=== PATIENT | female | born 1980 | race Caucasian/White ===

== ENCOUNTER → 2018-06-04 16:20 | Outpatient (CLI) | payer OTHER, SELFPAY ==
[2018-06-09 15:26] LABS: HPV HC, High Risk Negative (Negative)
--- OUTSIDE RECORDS SUMMARY | 2018-07-22 00:59 | XMS RPT_ITS ---
:1980 Author Organization OHIP Support Name Relationship Address Phone MIRTHA HYATT Unavailable [address] + [place] [address] [facility] Unavailable [address] + [place] [address] China Hyattian Unavailable Unavailable + VERNON, ROLAND Unavailable [address] + [place] [address] PROUDFOOT, MIRTHA Unavailable [address] + [place] [address] PROUDFOOT, MIRTHA Unavailable [address] + [place] [address] PROUDFOOT, MIRTHA Unavailable [address] + [place] [address] Proudfoot, Mirtha Unavailable Unavailable + Proudfoot, Mirtha Unavailable Unavailable + VERNON, ROLAND Unavailable [address] + [place] [address] PROUDFOOT, MIRTHA Unavailable [address] + [place] [address] PROUDFOOT, MIRTHA Unavailable [address] + [place] [address] VERNON, ROLAND Unavailable [address] + [place] [address] PROUDFOOT, MIRTHA Unavailable [address] + [place] [address] PROUDFOOT, MIRTHA Unavailable [address] + [place] [address] Proudfoot, Mirtha Unavailable Unavailable + Care Team Providers Name Role Phone DR. TAYLOR CASON DO Attending Unavailable WILLEM SAUCEDO, RICHARD Salcido JR. Primary Care Unavailable DR. TAYLOR CASON DO Attending Unavailable WILLEM SAUCEDO, RICHARD Salcido JR. Primary Care Unavailable FRANK. Castillo MACK MD II Attending Unavailable WILLEM SAUCEDO, RICHARD Salcido JR. Primary Care Unavailable JORGE MACK Attending Unavailable TAYLOR CASON Referring Unavailable TAYLOR CASON Primary Care Unavailable PROVIDER, UNKNOWN Attending Unavailable PROVIDER, UNKNOWN Referring Unavailable PROVIDER, UNKNOWN Primary Care Unavailable PROVIDER, UNKNOWN Attending Unavailable PROVIDER, UNKNOWN Referring Unavailable PROVIDER, UNKNOWN Primary Care Unavailable Ellen Esparza Attending Unavailable PROVIDER, UNKNOWN Referring Unavailable TAYLOR CASON Primary Care Unavailable PROVIDER, UNKNOWN Attending Unavailable PROVIDER, UNKNOWN Referring Unavailable PROVIDER, UNKNOWN Primary Care Unavailable Alexandre Schultz Attending Unavailable Marion, Alexandre Referring Unavailable Taylor Cason Primary Care Unavailable PROBLEMS PROBLEMS DATE TYPE CONDITION / CODE ATTENDING STATUS SOURCE 06/05/2018 Unknown Z12.4 - Encounter Alexandre Schultz Active [place] for screening for Community malignant neoplasm [facility] / Repository Z12.4(ICD-10) 04/18/2018 Admitting Primary Unknown Active [facility] Diagnosis osteoarthritis, System left ankle and Repository foot / M19.072(ICD-10) 04/18/2018 Admitting Calcaneal spur, Unknown Active [facility] Diagnosis left foot / System M77.32(ICD-10) Repository 04/18/2018 Admitting Arthrodesis status Unknown Active [facility] Diagnosis / Z98.1(ICD-10) System Repository 02/03/2018 Admitting Pain in left foot Ellen Esparza Active [facility] Diagnosis / M79.672(ICD-10) System Repository 09/19/2017 Admitting Lesion of plantar Unknown Active [facility] Diagnosis nerve, right lower System limb / Repository G57.61(ICD-10) 09/19/2017 Admitting Essential Unknown Active [facility] Diagnosis (primary) System hypertension / Repository I10(ICD-10) 09/19/2017 Admitting Other disorders of Unknown Active [facility] Diagnosis phosphorus System metabolism / Repository E83.39(ICD-10) 09/19/2017 Admitting Other gastritis Unknown Active [facility] Diagnosis without bleeding / System K29.60(ICD-10) Repository 08/02/2017 Admitting Pain in right foot Unknown Active [facility] Diagnosis / M79.671(ICD-10) System Repository PROCEDURES PROCEDURES No Procedure Records FoundRESULTS RESULTS PAP I-G HPV HI Collected: 06/04/2018 Status: F Source: [place] [facility] 4:20 PM [facility] [place] Order Comment: CYTOLOGY INFORMATION: - CLINICAL INFORMATION: - DATE LMP/MENOPAUSE: 05/24/18 LMP - COLLECTION VIAL: Thin Prep Vial - NAILING MACHINE OPERATOR SOURCE: CERVICAL/ENDOCERVICAL - COLLECTION TECHNIQUE: BRUSH/SPATULA Specimen Comment: [id number] Specimen Comment: Source.............Cervix;Endocervix Specimen Comment: LMP / Prev Treat...HFV=[id number] Specimen Comment: No. of containers..01 ThinPrep Vial TYPE CODE TESTS RESULT OUT OF RANGE REFERENCE UNITS LAB L7400.0800 . Normal DIAGN Comment Result Comment: NEGATIVE FOR INTRAEPITHELIAL LESION AND MALIGNANCY. LAB L7400.0900 . Normal ADEQ Comment Result Comment: Satisfactory for evaluation. Endocervical and/or squamous metaplastic cells (endocervical component) are present. LAB L7400.1400 . Normal PERFORM Comment Result Comment: Shyanne Tyler, Pre Press Proofer (ASCP) LAB L7400.2575 . Normal TEST METHOD Comment Result Comment: This liquid based ThinPrep(R) pap test was screened with the use of an image guided system. LAB L7400.2600 . Normal . COMM LAB L7400.2700 . Normal PAPSMR Comment Result Comment: The Pap smear is a screening test designed to aid in the detection of premalignant and malignant conditions of the uterine cervix. It is not a diagnostic procedure and should not be used as the sole means of detecting cervical cancer. Both false-positive and false-negative reports do occur. LAB L7400.2950 Negative Normal HPV Negative HC,HGH RISK Result Comment: This high-risk HPV test detects thirteen high-risk types (16/18/31/33/35/39/45/51/52/56/58/59/68) without differentiation. Performed at: [address] [id number] Casting Machine Operator Automatic: Jenny Arnold MD, Phone: [phone] Performed at: =[address] [id number] Casting Machine Operator Automatic: Jenny Arnold MD, Phone: [phone] Performed By: #### L7400.0375 #### [facility] (refer to report for specific site) refer to report for address and phone number CR FOOT COMPLETE 3+ Observed: 04/20/2018 Status: F Source: [facility] VIEWS LEFT 2:35 PM SYSTEM REPOSITORY Patient Name: ROMAN HYATT Diagnostic Radiology Exam Date/Time 04/18/2018 16:06:09 EDT Exam CR Foot Complete 3+ Views Left Ordering Physician ELLEN ESPARZA Accession Number [id number] CPT4 Codes 29263 () Reason For Exam Lt foot pain Report LEFT FOOT: CLINICAL INDICATION: Left foot pain. Prior left foot surgery. TECHNIQUE: AP, Lat and Oblique COMPARISON: 02/03/2018. FINDINGS: Prior talonavicular bony fusion by two cortical screws is unchanged. No hardware loosening. There is no evidence for fracture or dislocation. Mild degenerative changes of the first MTP joint are noted. Plantar calcaneal enthesophytes. No bone lesion or soft tissue abnormality is identified. IMPRESSION: 1. Mild first MTP osteoarthritis. 2. Talonavicular fusion by cortical screws. No loosening. 3. Cocaine enthesophytes. Report Dictated on Workstation: [id number] Final Dictating Physician: ALEXANDRE RAYMUNDO DO, I Signed Date and Time: 04/20/2018 2:37 pm Signed by: ALEXANDRE RAYMUNDO DO, I Transcribed Date and Time: 04/20/2018 2:38 CMP Collected: 02/28/2018 Status: F Source: [facility] 3:51 PM [facility] REPOSITORY TYPE CODE TESTS RESULT OUT OF REFERENCE UNITS RANGE LAB GLU(LOINC) 70-105 mg/dL Glucose Level 87 LAB NA(LOINC) 136-145 mmol/L Sodium Level 139 LAB K(LOINC) 3.5-5.1 mmol/L Potassium Level 4.0 LAB CL(LOINC) 98-107 mmol/L Chloride 100 LAB CO2(LOINC) 22-29 mmol/L CO2 26 LAB EBAL(LOINC mEq/L ) Electrolyte Balance 13.0 LAB BUN(LOINC) 7-18 mg/dL BUN High 26 LAB CRE(LOINC) 0.55-1.02 mg/dL Creatinine Lvl (s) 0.93 LAB BC(LOINC) 7-27 ratio High BUN/Creatinine 28 Ratio LAB CA(LOINC) 8.4-10.2 mg/dL Calcium Lvl 9.8 LAB PROT(LOINC 6.4-8.2 G/dL ) Total Protein 7.8 LAB ALB(LOINC) 3.5-5.0 G/dL Albumin Level 3.8 LAB GLB(LOINC) G/dL Globulin 4.0 LAB AG(LOINC) 1.1-2.5 ratio Low A/G Ratio 1.0 LAB BILT(LOINC 0.2-1.0 mg/dL ) Bili Total 0.2 LAB AP(LOINC) 40-135 U/L Alk Phos High >2300 LAB AST(LOINC) 10-40 U/L AST/SGOT 16 LAB ALT(LOINC) 10-35 U/L ALT/SGPT 22 Performed By: #### CMP, GFR, TSH, FT4, VIDH, PTH #### [place] [address] .GFR Collected: 02/28/2018 Status: F Source: [facility] 3:51 PM [facility]OUNDATION REPOSITORY TYPE CODE TESTS RESULT OUT OF REFERENCE UNITS RANGE LAB GFRAA(LOINC ml/min/1.73 ) sqm GFR 81 Norwegian Result Comment: GFR Population mean for , Non- Americans Ages 20-29 = 116 mL/min/1.73 sq.m. Ages 30-39 = 107 mL/min/1.73 sq.m. Ages 40-49 = 99 mL/min/1.73 sq.m. Ages 50-59 = 93 mL/min/1.73 sq.m. Ages 60-69 = 85 mL/min/1.73 sq.m. Ages 70+ = 75 mL/min/1.73 sq.m. Chronic Kidney Disease: Less than 60 mL/min/1.73 square meters End Stage Renal Disease: Less than 15 mL/min/1.73 square meters LAB GFRNO(LOINC) ml/min/1.73sqm GFR Non- 67 Result Comment: GFR Population mean for , Non- Americans Ages 20-29 = 116 mL/min/1.73 sq.m. Ages 30-39 = 107 mL/min/1.73 sq.m. Ages 40-49 = 99 mL/min/1.73 sq.m. Ages 50-59 = 93 mL/min/1.73 sq.m. Ages 60-69 = 85 mL/min/1.73 sq.m. Ages 70+ = 75 mL/min/1.73 sq.m. Chronic Kidney Disease: Less than 60 mL/min/1.73 square meters End Stage Renal Disease: Less than 15 mL/min/1.73 square meters Performed By: #### CMP, GFR, TSH, FT4, VIDH, PTH #### [place] [address] TSH Collected: 02/28/2018 Status: F Source: [facility] 3:51 [facility] [place] REPOSITORY TYPE CODE TESTS RESULT OUT OF RANGE REFERENCE UNITS LAB TSH(LOINC) 0.36-3.74 mcIU/mL TSH 1.73 Performed By: #### CMP, GFR, TSH, FT4, VIDH, PTH #### [place] [address] FT4 Collected: 02/28/2018 Status: F Source: [facility] 3:51 [facility] [place] REPOSITORY TYPE CODE TESTS RESULT OUT OF RANGE REFERENCE UNITS LAB FT4(LOINC) 0.76-1.46 ng/dL Free T4 1.26 Performed By: #### CMP, GFR, TSH, FT4, VIDH, PTH #### [place] [address] VIDH Collected: 02/28/2018 Status: F Source: [facility] 3:51 [facility] [place] REPOSITORY TYPE CODE TESTS RESULT OUT OF RANGE REFERENCE UNITS LAB VIDH(LOINC) ng/mL Vit. D 29 25-Hydroxy Result Comment: Interpretive Values Based on Total 25(OH)D: Severe Deficiency <20 ng/mL Mild to Moderate Deficiency 20-30 ng/mL Optimum Levels 30-100 ng/mL Toxicity Possible >100 ng/mL Performed By: #### CMP, GFR, TSH, FT4, VIDH, PTH #### [place] [address] PTH Collected: 02/28/2018 Status: F Source: [facility] 3:51 PM FOUNDATION REPOSITORY TYPE CODE TESTS RESULT OUT OF REFERENCE UNITS RANGE LAB PTH(LOINC) 18.5-88.0 pg/mL PTH, Intact 39.4 Performed By: #### CMP, GFR, TSH, FT4, VIDH, PTH #### [facility] [address] [place] [id number] PROGRESS NOTE Observed: 02/21/2018 Status: COMPLETED Source: [place] 3:30 PM [facility] REPOSITORY Skeletal Dysplasia Clinic Note Date: 02/21/18 Reason for Visit: Roman Hyatt 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 They She presents today with her daughter. I last saw her in clinic on May 24, 2017. At that time she was being seen for recheck was found to have profound hypertension and was sent to the emergency department. Was reported that she was placed on medication with improvement of her hypertension been occurring. 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 Additionally, she has a surgical history significant for femur osteotomy and fixation in 1997 and 1998, foot surgery in 2009 2010, C-sections in 2000 in 2007, fallopian tube ligation in July 2007. She has been on Strensiq for the past 2 years and has done rather well. When her dose was lowered based on weight loss, she did notice breakthrough pain and achiness. This resolved when the dose was increased to that which was based on a prior weight. She does follow with ophthalmology (Dr. Henry) and no calcifications were noted on January 07, 2017. She s been asked to follow at least yearly there, preferably Q6 months. She also follows with dentistry, teeth have been stable with a permanent border wire in place. She undergoes lab evaluation every 6 months (CMP, PTH, phosphorus). Roman has trouble with headaches, these are thought to be migraine in nature. However, it is not clear to what degree her hypertension was causing these. Per report, her hypertension is now being successfully managed medically. A cyst was found on renal CT per report, and I asked a she consult with nephrology which occurred in July 2017, Dr. Chavez. At that point in time amlodipine 5 mg nightly was added and was documented that review of the renal scans would occur. At her last visit, I also ordered a sleep study which was to occur at an [facility] facility due to Roman s age. Family, she has a history of gastritis treated with Protonix. She had a DEXA scan done in summer which was essentially within normal limits showing the lumbar spine at 1.4 distal radius of -1.5. Due to cost savings, Roman has opted to use the less concentrated form of Streniq and so is now administering 2 injections per day, six days per week. Significant Ongoing Issues: 1. Left foot pain. Following with adult orthopedist. Bone spurs with suspicion of osteoarthritis, having been diagnosed via x-rays, no fracture noted. Treatment plan includes cortisone injection, pending. SD ROS: Vision: No issues or concerns. Follow-up with seamer operator (Dr. Henry). Follow-up in 2018, no issues or problems, no calcifications per report. Ears: No issues Dental: Stable dentition with permanent border wire in place. Reports some looseness of front teeth. Following with serial x-rays with dentist. Reports no visible increase in bone mass over the past year while in Strensiq. Resp: No significant snoring, apnea, cough, distress. Cardiovascular: History of hypertension, at last visit in May 2017. Blood pressure around 205/93. She was sent to the emergency department at that time that she was having significant headaches accompanied with elevated blood pressure. She was treated with medication in the ER and sent home. Since that time. Follow with cardiology/nephrology currently continued on Norvasc as well as Toprol XR, blood pressure is not running 120s over 80s to 90s. Headache is greatly improved. No ongoing concerns about cardiovascular disease per report. SENIOR OFFICE SUPPORT ASSISTANT SOSA: Headaches are greatly improved since control the hypertension. No LOC, seizure activitiy Sleep: Sleeping well Growth: Express some concern about weight gain. Void/Stool: Renal cyst per past CT. Evaluated by nephrology Dr. Chavez in July 2017. Medication for hypertension prescribed. History of constipation, persistent Skin: No rash or bruising Dry skin Hormone: Roman voices concerns about possible thyroid issues Menarche/LMP: On OCP Past Medical History: Previously documented in medical record. Hypophosphatasia, hypertension, renal cysts, GERD Past Surgical History: Previously documented in medical record. - Resection of neuroma, right foot August 2017 - Femoral osteotomy with fixation 1990 8/19/99 - Foot surgery 04/2010, on 04/2011 - C-sections 2001 in 2007 Medications: Strensiq 0.67mL daily, six days per week Grossly. Norvasc Toprol XL Allergies: Morphine eyes Codeine nausea and vomiting Immunizations: Up to date as reported Social History: No changes Former smoker Family History: Noncontributory Safety: Discussed age appropriate safety precautions and advised against activities / situations with significant potential for serious injury. LABS & Studies: Last studies November 2015 Bone density wnl (lumbar spine 1.4, distal radius -1.5) summer 2016 Physical Exam: Vital Signs: reviewed Ht (!) 144.6 cm Wt 68.3 kg BMI 32.67 kg/m General: Alert and awake, no acute distress HEENT: Head NC/AT Eyes PERRLA, EOMI, no conjunctival injection, no scleral icterus Ears TMs clear bilaterally Nose no congestion Mouth moist oral mucosa Dentition normal for age, no signs of carries Neck: supple, BETO, no lymphadenopathy Cardiovascular: Regular rate and rhythm, no murmur, appropriate distal pulses Respiratory: Lungs clear to auscultation bilaterally, no crackles or wheezes, no signs of distress Abdomen: Soft, non-tender with no distension, normal bowel sounds No hepatosplenomegaly : Exam differed Neurologic: No focal neurologic deficits Strength and sensation intact Biceps and Patellar reflexes 2+ No clonus Skin: No rash or bruising Musculoskeletal: Hands with typical configuration, wrist with no significant laxity. Elbows lack presently 5 of extension. Supination is reduced bilaterally. Range of motion in knees appropriate. Some reduced range of motion in left ankle plantar and dorsiflexion. No edema or erythema noted. Gait normal. Assessment: Roman Hyatt is a 37 y.o. female with likely confirmed hypophosphatasia, now on Strensiq for the past 2 years. Over this time she has noted marked reduction in bone pain was improved stamina. She is history of hypertension which is now controlled with medication. She follows regularly with her primary care, dentistry and ophthalmology. She has consult with nephrology in the past. Roman has been experiencing left ankle pain. She has been evaluated by an adult orthopedics. Films were done and showed no fracture. She does have bone spurs and osteoarthritis. The plan is for joint injection. We did discuss supportive measures including compression and heat. Accordingly, we discussed exercise bike swimming. Along with this I feel that would be a good idea that she obtain access to a hot tub as this may markedly help with some of her joint and bone pain. A prescription was written to this effect. Labs ordered today. General Plan for HPP: - Continue Strensiq - Ophthalmology every 6 months - Labs every 6 months (CMP, Phos, PTH) - Renal Ultrasound yearly - Dentists every 6 months - DEXA every 5 years Plan: Diet: Continue consuming a healthy diet low in saturated fats, junk food, etc. Exercise: Engage in regular exercise like swimming. Safety: Use caution in parking lots as individuals with shorter stature are at risk for pedestrian versus motor vehicle accidents. I'm happy to prescribe a handicap placard upon your request so that you can Park close her in the parking lot. Specialty follow-up: - Adult orthopedic surgery, as planned - Ophthalmology, every 6-12 months - Nephrology, yearly General Healthcare: Follow-up with your primary care provider for routine well check along with routine vaccines including seasonal influenza. Medication: -None prescribed today To Do: - Continue on Strensiq - Labs today: Vitamin D level, CMP, CBC, TSH, free T4, PTH, phosphorus - Consider purchasing hot tub as this will likely help with your chronic joint and bone pain. - Whenever possible engage in swimming activity a local [facility] Follow-up: Skeletal Dysplasia in 6 months Please call or return with any questions or concerns. Many families will receive a survey in the weeks following their visit to [facility]. We know that these take time to complete and that you likely have many other potentially more enjoyable things to do. However, we would GREATLY appreciate it if you would consider filling out and returning this survey. It is very helpful for us to know what we are doing well and what we can improve upon. Our goal is to provide the absolute best care possible to every single person we see in clinic and we need your feedback to make this a reality. Thank you! Jorge Mack MD Over 60 minutes spent in visiting with family, developing the treatment plan and in documentation - with 50% spent in counseling . This report has been created using voice recognition software. It may contain minor errors which are inherent in voice recognition technology CR FOOT COMPLETE 3+ Observed: 02/04/2018 Status: F Source: [facility] VIEWS LEFT 12:48 PM SYSTEM REPOSITORY Patient Name: ROMAN HYATT Diagnostic Radiology Exam Date/Time 02/03/2018 13:54:22 EDT Exam CR Foot Complete 3+ Views Left Ordering Physician ELLEN ESPARZA Accession Number [id number] CPT4 Codes 77360 () Reason For Exam pain Report LEFT FOOT History: Foot pain , prior surgery COMPARISON: 08/05/2015 IMPRESSION: Three views redemonstrate surgical screws affixing the talus and surgical fusion of the talonavicular joint, similar to last exam. There are increased sclerotic changes at the talus which could reflect callus formation but avascular necrosis could not be excluded. There are also osteoarthritic changes. There are plantar and posterior calcaneal spurs. There are small spurs at the first metacarpophalangeal and interphalangeal joint. There is no acute fracture, dislocation or other significant interval change. Report Dictated on Workstation: [email or web address] Final Dictated: 02/04/2018 12:48 pm Dictating Physician: MD VILLAREAL AHMAD Signed Date and Time: 02/04/2018 12:55 pm Signed by: MD VILLAREAL AHMAD Transcribed Date and Time: 02/04/2018 12:48 CMP Collected: 08/23/2017 Status: F Source: [facility] 3:44 PM [facility] REPOSITORY TYPE CODE TESTS RESULT OUT OF REFERENCE UNITS RANGE LAB 1547-9 70-105 mg/dL GLUCOSE 87 LAB NA(LOINC) 136-146 mEq/L Sodium Level 140 LAB K(LOINC) 3.5-5.1 mEq/L Potassium Level 3.9 LAB CL(LOINC) 98-107 mEq/L Chloride 101 LAB CO2(LOINC) 22-29 mEq/L CO2 28 LAB EBAL(LOINC mEq/L ) Electrolyte Balance 11.0 LAB BUN(LOINC) 7.0-18.0 mg/dL BUN 17.5 LAB CRE(LOINC) 0.6-1.2 mg/dL Creatinine Lvl (s) 0.8 LAB BC(LOINC) 7-27 ratio BUN/Creatinine 22 Ratio LAB CA(LOINC) 8.4-10.2 mg/dL Calcium Lvl 9.9 LAB PROT(LOINC 6.0-8.3 G/dL ) Total Protein 7.3 LAB ALB(LOINC) 3.5-5.0 G/dL Albumin Level 4.3 LAB GLB(LOINC) G/dL Globulin 3.0 LAB AG(LOINC) 1.1-2.5 ratio A/G Ratio 1.4 LAB BILT(LOINC 0.2-1.0 mg/dL ) Low Bili Total <0.2 LAB AP(LOINC) 40-135 IU/L Alk Phos High >6000 LAB AST(LOINC) 10-40 IU/L AST/SGOT 14 LAB ALT(LOINC) 10-35 IU/L ALT/SGPT 16 Performed By: #### CMP, GFR #### [address] [address] .GFR Collected: 08/23/2017 Status: F Source: [facility] 3:44 PM [facility] REPOSITORY TYPE CODE TESTS RESULT OUT OF REFERENCE UNITS RANGE LAB GFRAA(LOINC ml/min/1.73 ) sqm GFR 96 Norwegian Result Comment: GFR Population mean for , Non- Americans Ages 20-29 = 116 mL/min/1.73 sq.m. Ages 30-39 = 107 mL/min/1.73 sq.m. Ages 40-49 = 99 mL/min/1.73 sq.m. Ages 50-59 = 93 mL/min/1.73 sq.m. Ages 60-69 = 85 mL/min/1.73 sq.m. Ages 70+ = 75 mL/min/1.73 sq.m. Chronic Kidney Disease: Less than 60 mL/min/1.73 square meters End Stage Renal Disease: Less than 15 mL/min/1.73 square meters LAB GFRNO(LOINC) ml/min/1.73sqm GFR Non- >60 Result Comment: GFR Population mean for , Non- Americans Ages 20-29 = 116 mL/min/1.73 sq.m. Ages 30-39 = 107 mL/min/1.73 sq.m. Ages 40-49 = 99 mL/min/1.73 sq.m. Ages 50-59 = 93 mL/min/1.73 sq.m. Ages 60-69 = 85 mL/min/1.73 sq.m. Ages 70+ = 75 mL/min/1.73 sq.m. Chronic Kidney Disease: Less than 60 mL/min/1.73 square meters End Stage Renal Disease: Less than 15 mL/min/1.73 square meters Performed By: #### CMP, GFR #### [address] [address] RENIND Collected: 08/21/2017 Status: F Source: [facility] 4:12 PM [facility] REPOSITORY TYPE CODE TESTS RESULT OUT OF REFERENCE UNITS RANGE LAB RENDI(LOINC pg/mL ) Direct Renin 4.8 Result Comment: Renin Reference Range, 0-40 years: Upright: 4.2-52.2 pg/mL Supine: 3.2-33.2 pg/mL Performed By: [employer] [address] Casting Machine Operator Automatic: Laura Quintanilla M.D. CLIA#: [id number] Phone#: Performed By: #### RENIND, NORBERTO, PMETAN #### [place] [address] [address] ALDOS Collected: 08/21/2017 Status: F Source: [facility] 4:12 PM [facility] REPOSITORY TYPE CODE TESTS RESULT OUT OF REFERENCE UNITS RANGE LAB NORBERTO(LOINC 3.1-35.4 ng/dL ) Aldosterone 18.8 Result Comment: Normal serum levels of aldosterone are dependent on the sodium intake and whether the patient is upright or supine. High sodium intake will tend to suppress serum aldosterone, whereas low sodium intake will elevate serum aldosterone. The reference interval for serum aldosterone are based on a normal sodium intake. Supine reference range <23.1 ng/dL Performed By: [email or web address] [employer] [place] [address] Casting Machine Operator Automatic: Laura Quintanilla M.D. CLIA#: [id number] Phone#: Performed By: #### RENIND, NORBERTO, PMETAN #### [address] [address] METP Collected: 08/21/2017 Status: F Source: [facility] 4:12 PM FOUNDATION REPOSITORY TYPE CODE TESTS RESULT OUT OF REFERENCE UNITS RANGE LAB PMET(LOINC) 12-67 pg/mL Metanephrine, 34 Fract Plasma Result Comment: Reference Ranges: Hypertensive adult > or = 18 yrs old: 12-72 pg/mL Normotensive adult > or = 18 yrs old: 12-67 pg/mL Normotensive children < 18 yrs old: 10-95 pg/mL This test was developed and its performance characteristics determined by [facility] [place] ([facility]). It has not been cleared or approved by the FDA. -[facility] is regulated under CLIA as qualified to perform high-complexity testing. This test is used for clinical purposes. It should not be regarded as investigational or for research. Performed By: [facility] [employer] [address] Casting Machine Operator Automatic: Laura Quintanilla M.D. CLIA#: [id number] Phone#: LAB PNMET(LOINC) 18-101 pg/mL Normetanephrine, Fract Plasma 61 Result Comment: Reference Ranges: Hypertensive adult > or = 18 yrs old: 24-145 pg/mL Normotensive adult > or = 18 yrs old: 18-101 pg/mL Normotensive children < 18 yrs old: 22-83 pg/mL Methyldopa may cause false elevation of normetanephrine levels in this assay. If patient is on methyldopa, interpret results with caution. This test was developed and its performance characteristics determined by [facility] [place] ([facility]). It has not been cleared or approved by the FDA. -[facility] is regulated under CLIA as qualified to perform high-complexity testing. This test is used for clinical purposes. It should not be regarded as investigational or for research. Performed By: [facility] [employer] [place] [id number] Casting Machine Operator Automatic: Laura Quintanilla M.D. CLIA#: [id number] Phone#: Performed By: #### JESSICAD, NORBERTO, PMETAN #### [address] [address] CR FOOT COMPLETE 3+ Observed: 08/05/2017 Status: F Source: [facility] VIEWS RIGHT 11:18 AM SYSTEM REPOSITORY Patient Name: ROMAN HYATT Diagnostic Radiology Exam Date/Time 08/02/2017 16:14:23 EST Exam CR Foot Complete 3+ Views Right Ordering Physician ELLEN ESPARZA Accession Number [id number] CPT4 Codes 88163 () Reason For Exam Pain in right foot Report RIGHT FOOT History: Foot pain COMPARISON: 12/14/2016 Findings: Three views of the right foot redemonstrate surgical fusion with spurring or bony protrusion at the first metatarsophalangeal joint with corresponding surgical plate and screws, similar to last exam. There is small avulsion fracture fragment of the base of the first distal phalanx of uncertain age. There is mild separation of the first and second toe, unchanged. There has been internal fixation of fifth metatarsal shaft fracture with sclerotic changes and surgical screw. The fracture line is only partially visible. There is superior navicular and posterior calcaneal spurs, unchanged. IMPRESSION: Postsurgical changes and fusion of the first metatarsophalangeal joint. Fifth metatarsal fracture with internal fixation. Small avulsion fracture of the base of the first distal findings of uncertain age. Correlate clinically. Degenerative spurring.. Report Dictated on Final Dictating Physician: MD VILLAREAL AHMAD Signed Date and Time: 08/05/2017 11:24 am Signed by: MD VILLAREAL AHMAD Transcribed Date and Time: 08/05/2017 11:25 ALLERGIES ALLERGIES DATE TYPE / CODE NAME / CODE REACTION SEVERITY SOURCE 04/20/2015 DRUG CODEINE [facility]ED[facility]419 [facility] 072344(SNOM Repository ED CT) 04/20/2015 Drug MORPHINE AND [facility] Class/03439 RELATED Hospital 1003(SNOMED Repository CT) ENCOUNTERS ENCOUNTERS ADMIT/DISCHARGE ACCOUNT NUMBER ADMITTING ENCOUNTER LOCATION SOURCE CLASS 06/04/2018 [id number] Ambulatory [facility] ding:[facility]SPEC Repository 04/18/2018 [id number] Ambulatory [facility] Repository 02/28/2018/02/29/20 [id number] Ambulatory CHRISTINA Christina [address] [place] [address] ding:OLAB [facility] Repository 02/21/2018/02/22/20 [id number] Ambulatory Building:[facility] Repository 02/03/2018 [id number] Ambulatory [facility] Repository 09/19/2017 [id number] Ambulatory [address] [place] [address] WSDSRoom: 2B System WSDSBed: Repository [id number] 08/23/2017/08/24/19 [id number] Ambulatory [address] ding:OLAB [facility] Repository 08/21/2017/08/21/19 [id number] Ambulatory [address] ding:[facility] Repository 08/02/2017 [id number] Ambulatory [facility] Repository PAYERS PAYERS ENCOUNTER GUARANTOR PAYER SUBSCRIBER SOURCE 06/04/2018 MIRTHA Primary MIRTHA Olinda [id number] E Insurance:AULTCAREPolicy PROUDFOOTDOB: [facility] Number: [id number] [place], [place] [id number] Repository [address]Bku: 330) Date:[id number] [phone] () [address], [place] [address]LY: 06/04/2018 Secondary Insurance:SELF NOT GIVENUNK [place] PAY INSURANCEPoly Community Number: Effective Hospital Date:2018-06-04 Repository 04/18/2018 Roman Farrell [facility]: Insurance:Commercial ProudfootDOB: System E Insurance [id number] [facility] [place] Number: Effective Date: [address]Blb: () 02/28/2018 ROMAN Farrell Primary Insurance:[place] MIRTHA [facility] PROUDFOOTDOB: PPO CONNECTPolicy Number: PROUDFOOTDOB: Foundation E [id number] Repository [place] Date:2018-02-28 [place] 3126-06-00Nwre Name:[place] [address]~BZYBLONDE [place]ita [place] [address]Ttl: [phone] [email or web address]: [phone] NETTel: [phone]) (HP) [phone] (WP) (HP) (WP) 02/21/2018 ROMAN PEDERSON [facility] [place] PROUDFOOTDOB: PPO CONNECTPolicy Number: PROUDFOOTDOB: [facility] [id number] [facility] Date: JESUSITA CORLEY MD E [address] [place], [place] [address]YH: [place], [place] [address]Plu: [phone] (HP) (WP) 02/03/2018 Roman Bud Primary [facility]: Insurance:Commercial [place]DOB: System E Insurance [id number] [facility]ository [facility] [place] Number: Effective Date: [address]Bgt: (HP) 09/19/2017 Roman Bud Primary Insurance:Managed [facility]footD[facility]: CarePolicy Number: ProudfootDOB: System E Effective Date: [id number] Repository [place], [place] [address]Kus: () 08/23/2017 ROMAN Bud Primary Insurance:[facility] PROUDFOOTDOB: PPO CONNECTPolicy Number: PROUDFOOTDOB: Foundation E [id number] [facility] Date:2017-08-23 E [facility] [place] 4483-13-97Vmna Name:[place] [address]~DAYAN Corley [place] [address]Rys: [phone] [email or web address] [phone]: [phone] NETTel: [phone]) (HP) [phone] (WP) (HP) (WP) 08/21/2017 ROMAN Farrell Primary Insurance:[facility] PROUDFOOTDOB: PPO CONNECTPolicy Number: PROUDFOOTDOB: Foundation E [id number] Repository [place] Date:2017-08-21 [place] 6789-02-45Rlrx Name:[place] [address]~DAYAN Corley [place] [address]Pbp: [phone] [email or web address] [phone]: [phone] NETTel: [phone]) (HP) [phone] (WP) (HP) (WP) 08/02/2017 Roman Farrell Primary [facility]: Insurance:Commercial Proud[place]DOB: System E Insurance [id number] Repository [place] [facility] [place], [place] Number: Effective Date: [address]Cqe: (HP)
== END ==
PROVIDERS: Referring Provider Obstetrics & Gynecology; Visit Provider Obstetrics & Gynecology
DX: Z12.4 Encounter for screening for malignant neoplasm of cervix (principal)
CPT/HCPCS: 87624; 88175; G0145